=== PATIENT | male | born 1950 | race Hispanic/Latino ===

== ENCOUNTER 2024-06-05 15:36 | Emergency (ER) | payer MEDICARE, MEDICAID ==
[~2024-06-05] VITALS: Ht 188 cm; Wt 81.6 kg
[~2024-06-05 15:36] MED LIST: ABILIFY5 MG PO; COREG12.5 MG PO; DEMADEX10 MG PO; DILT-XR120 MG PO; ELIQUIS5 MG PO; ENALAPRIL20 MG PO; JARDIANCE10 MG; LEVOTHYROXIN25 MC1 PO; MIRTAZAPINE30 M2 PO; OXYBUTYNIN CHLOR5 M2; PROTONIX40 M2 PO; PROZAC10 MG PO; QUETIAPINE FUMA25 MG PO; TAMSULOSIN0.4 MG PO; [UNRECOGNIZED DRUG - OTHER] PO
[2024-06-05 15:58] VITALS: BP 120/77
[2024-06-05 16:00] VITALS: BP 113/78
[2024-06-05] MEDS ORDERED: BACTRIM DS1 TAB PO ×2 (16:24→16:30)
[2024-06-05 16:39] VITALS: BP 113/78
== END 2024-06-05 16:43 | disposition home or self-care (01) ==
LOC: ED 15:36
PROC: 0H96XZZ Drainage of Back Skin, External Approach (ICD-10-PCS; principal; 2024-06-05)
DX: L02.212 Cutaneous abscess of back [any part, except buttock and flank] (principal); I10 Essential (primary) hypertension

== ENCOUNTER 2024-06-07 10:08 | Emergency (ER) | payer MEDICARE, MEDICAID ==
[~2024-06-07] VITALS: Ht 188 cm; Wt 90.0 kg
[~2024-06-07 10:08] MED LIST changes: +BACTRIM DS1 TAB PO
[2024-06-07 10:15] VITALS: BP 144/101
[2024-06-07 10:30] VITALS: BP 146/92
[2024-06-11] MEDS ORDERED: BISOPROLOL FUMA10 MG PO (11:20)
[2024-06-11] MEDS ORDERED: FERROUS SULFAT325 MG PO (11:21)
[2024-06-11] MEDS ORDERED: DEPAKOTE250 MG PO (11:22)
[2024-06-11] MEDS ORDERED: MELATONIN3 MG PO (11:24)
[2024-06-11] MEDS ORDERED: CYMBALTA60 MG PO (11:38)
[2024-06-11] MEDS ORDERED: ELIQUIS2.5 MG PO (11:38)
== END 2024-06-07 11:08 | disposition home or self-care (01) ==
LOC: ED 10:08
DX: Z48.01 Encounter for change or removal of surgical wound dressing (principal); I12.9 Hypertensive chronic kidney disease with stage 1 through stage 4 chronic kidney disease, or unspecified chronic kidney disease; N18.9 Chronic kidney disease, unspecified